=== PATIENT | female | born 1980 | race Caucasian/White ===

== ENCOUNTER → 2017-03-16 | Outpatient (CLI) | payer BC ==
[2017-03-16 15:46] LABS: CH 32.9; HCT 44.4 % (34.0-46.0); HDW 2.69; HGB 15.2 gm/dL (11.4-16.0); MCH 33.4 pg (25.0-35.0); MCHC 34.2 g/dL (31.0-37.0); MCV 97.5 fL (80.0-100.0); Mean Platelet Volume 7.2; RBC 4.55 m/uL (3.80-5.40); WBC 9.7 k/uL (3.8-10.6)
== END | disposition home or self-care (01) ==
LOC: LABPAT 14:41
PROVIDERS: ATTEND Surgery
DX: Z01.812 Encounter for preprocedural laboratory examination (principal); K43.2 Incisional hernia without obstruction or gangrene
CPT/HCPCS: 36415; 85027

== ENCOUNTER 2017-03-20 08:34 | Day surgery (SDC) | payer BC ==
[2017-03-16 09:06] VITALS: BMI 36.4
[~2017-03-20 08:34] MED LIST: DEXAMETHASONE SOD PHOSPHATE 10 MG/ML 1 ML VIAL IV ONE; HEPARIN SODIUM,PORCINE 5,000 UNIT/ML 1 ML VIAL SQ ONE; LACTATED RINGERS 1,000 ML IV SCH; MORPHINE SULFATE 4 MG/ML SYRINGE IV PRN; ONDANSETRON 4 MG/2 ML VIAL IVP ONE; ceFAZolin IN SWFI 2 GM/20 ML SYRINGE IVP ONE
[2017-03-20 09:08] LABS: Glucose,Whole Blood 164 mg/dL (75-99)
--- NOTE | 2017-03-20 09:08 | P.GSHP ---
History of Present Illness H&P Date: 03/20/17 Chief Complaint: Incarcerated incisional hernia This is a 29-year-old female for from Dr. Victor Manuel Frye. Patient resents today for incarcerated incisional hernia repair. Patient had a previous incisional hernia repaired robotically approximate 1 year ago. ago. She has developed a recurrent hernia. Today she presents for open repair. Past Medical History Past Medical History: Diabetes Mellitus, GERD/Reflux, Sleep Apnea/CPAP/BIPAP Additional Past Medical History / Comment(s): C-PAP MACHINE, DR TOLD HER SHE HAS A HERNIA. History of Any Multi-Drug Resistant Organisms: None Reported Past Surgical History: Section, Cholecystectomy, Hernia Repair Additional Past Surgical History / Comment(s): BARTHOLIN CYST X2, EGD'S, COLONOSCOPY. HEMORRHOID SURGERY Past Anesthesia/Blood Transfusion Reactions: Previous Problems w/ Anesthesia, Family History of Problems w/ Anesthesia Additional Past Anesthesia/Blood Transfusion Reaction / Comment(s): VERSED CAUSED CONFUSION AND BECAME COMBATIVE. PTS FATHER DID NOT WAKE UP FOR 3 DAYS ( CHILDHOOD SURGERY) Smoking Status: Current every day smoker - Past Family History Mother Family Medical History: Cancer, Deep Vein Thrombosis (DVT) Medications and Allergies Home Medications Medication Instructions Recorded Confirmed Type metFORMIN HCL [Glucophage] 500 mg PO BID 03/10/16 03/20/17 History Cholestyramine (with Sugar) 4 gm PO DAILY 03/16/17 03/20/17 History [Cholestyramine Packet] glyBURIDE [Diabeta] 5 mg PO AC-BID 03/16/17 03/20/17 History Allergies Allergy/AdvReac Type Severity Reaction Status Date / Time hydromorphone [From Dilaudid] Allergy Severe Anaphylaxis Verified 03/16/17 09:00 midazolam [From Versed] AdvReac Severe CONFUSED, Verified 03/16/17 09:00 COMBATIVE. Surgical - Exam Vital Signs Temp Pulse Resp BP Pulse Ox 96.8 F L 92 16 136/87 97 03/20/17 08:52 03/20/17 08:52 03/20/17 08:52 03/20/17 08:52 03/20/17 08:52 - General well developed, no distress - Eyes PERRL - ENT normal pinna - Neck no masses - Respiratory normal expansion - Cardiovascular Rhythm: regular - Abdomen Abdomen: soft, non tender Hernia: incisional (4 cm incarcerated incisional hernia located above the umbilicus) Assessment and Plan Assessment: t recurrent incarcerated incisional hernia. We'll perform open repair.
[2017-03-20] MEDS ORDERED: LIDOCAINE 1% 20 ML VIAL (10MG/ML) FOR IV START INTRADERMA ONE (09:09)
[2017-03-20] MEDS ORDERED: fentaNYL (PF) 50 MCG/ML 2 ML AMP ONE (09:38)
[2017-03-20] MEDS ORDERED: PROPOFOL 10 MG/ML 20 ML VIAL IV ONE (09:38)
[2017-03-20] MEDS ORDERED: ROCURONIUM BROMIDE 10 MG/ML 10 ML VIAL IV ONE (09:38)
[2017-03-20] MEDS ORDERED: MORPHINE SULFATE 10 MG/ML SYRINGE ONE (09:38)
[2017-03-20] MEDS ORDERED: LIDOCAINE 1% INJ 10MG/ML (20 ML MDV) ONE (09:38)
[2017-03-20] MEDS ORDERED: GLYCOPYRROLATE 0.2 MG/ML 2 ML VIAL ONE (09:38)
[2017-03-20] MEDS ORDERED: NEOSTIGMINE 1 MG/ML 10 ML VIAL ONE (09:38)
[2017-03-20] MEDS ORDERED: KETOROLAC 30 MG/ML 1 ML VIAL ONE (09:38)
[2017-03-20] MEDS ORDERED: SUCCINYLCHOLINE CHLORIDE 100 MG/5 ML SYR IV ONE (09:38)
[2017-03-20] MEDS ORDERED: KETAMINE 10 MG/ML 20 ML VIAL ONE (09:38)
[2017-03-20] MEDS ORDERED: diphenhydrAMINE 50 MG/ML 1 ML VIAL ONE (09:38)
[2017-03-20] MEDS ORDERED: BUPIVACAINE-EPI 0.5%-1:200,000 10 ML VIAL SQ ONE (10:02)
[2017-03-20] MEDS ORDERED: LACTATED RINGERS 1,000 ML IV ONE (10:46)
[2017-03-20 11:10] VITALS: TEMP 98.2
--- NOTE | 2017-03-20 11:11 | P.OP ---
Date of Procedure: 03/20/17 Preoperative Diagnosis: Recurrent incisional hernia Postoperative Diagnosis: Recurrent incisional hernia Procedure(s) Performed: Recurrent incisional hernia repair with mesh Anesthesia: DRAKE Surgeon: Mark Dominguez Estimated Blood Loss (ml): 5 Pathology: none sent Condition: stable Disposition: PACU Description of Procedure: The patient's placed on the operating table in supine position. She received general anesthesia. Her abdomen was prepped and draped usual fashion. The patient had an incisional hernia located near her umbilicus. Using a 15 blade the skin was incised and then using blunt and sharp dissection with cautery the fascia was exposed. The hernia defect measured approximately 10 cm diameter. The hernia defect was then closed using. 0 Ethibond suture. Next a Prolene mesh was placed over top apparent secured to secure strap's tacker. The mesh measured 6 x 6". A FOREIGN drains placed on top of the mesh brought through separate stab incisions.. Jose Raul's fascia was closed with 0 Vicryl. Closed with running 3-0 Monocryl suture. Dermabond was applied. Patient top she will was sent to recovery in stable condition.
[2017-03-20] MEDS ORDERED: MEPERIDINE 50 MG/ML SYRINGE IVP ONE (12:16)
[2017-03-20 12:48] LABS: Glucose,Whole Blood 261 mg/dL (75-99)
[2017-03-20] MEDS ORDERED: INSULIN ASPART 100 UNIT/ML 1 ML 10 ML VIAL SQ ONE (12:59)
[2017-03-20] MEDS ORDERED: HYDROcodone/APAP 7.5-325MG 1 EACH TAB PO ONE (13:09)
[2017-03-20 13:17] VITALS: RESP 16
[2017-03-20 13:35] VITALS: BP 122/82; PULSE 94
[2017-03-20 13:41] LABS: Glucose,Whole Blood 231 mg/dL (75-99)
== END 2017-03-20 14:17 | disposition home or self-care (01) ==
LOC: OR 08:34
PROVIDERS: ATTEND Surgery
DX: K43.2 Incisional hernia without obstruction or gangrene (principal); E11.9 Type 2 diabetes mellitus without complications; Z79.84 Long term (current) use of oral hypoglycemic drugs; K21.9 Gastro-esophageal reflux disease without esophagitis; G47.33 Obstructive sleep apnea (adult) (pediatric); Z99.89 Dependence on other enabling machines and devices; F17.200 Nicotine dependence, unspecified, uncomplicated; Z79.899 Other long term (current) drug therapy; Z88.4 Allergy status to anesthetic agent; Z88.5 Allergy status to narcotic agent
CPT/HCPCS: 81025

== ENCOUNTER → 2017-08-31 | Day surgery (SDC) | payer BC ==
[2017-08-29 10:15] VITALS: BMI 37.1
[~2017-08-31] MED LIST changes: -DEXAMETHASONE SOD PHOSPHATE 10 MG/ML 1 ML VIAL IV ONE; -HEPARIN SODIUM,PORCINE 5,000 UNIT/ML 1 ML VIAL SQ ONE; +LACTATED RINGERS 1,000 ML IV ONE; +LIDOCAINE 1% 20 ML VIAL (10MG/ML) FOR IV START INTRADERMA PRN; +LIDOCAINE 1% INJ 10MG/ML (20 ML MDV) ONE; -MORPHINE SULFATE 4 MG/ML SYRINGE IV PRN; -ONDANSETRON 4 MG/2 ML VIAL IVP ONE; +PROPOFOL 10 MG/ML 20 ML VIAL IV ONE; -ceFAZolin IN SWFI 2 GM/20 ML SYRINGE IVP ONE; +fentaNYL (PF) 50 MCG/ML 20 ML VIAL IVP PRN
[2017-08-31 07:26] VITALS: RESP 16; TEMP 98.5
[2017-08-31 07:30] LABS: Glucose,Whole Blood 199 mg/dL (75-99)
--- NOTE | 2017-08-31 07:43 | P.GSHP ---
History of Present Illness H&P Date: 08/31/17 Chief Complaint: Diarrhea 7:29-year-old female referred from Dr. Victor Manuel Frye. Patient has hiccups diarrhea. She presents today for colonoscopy. Past Medical History Past Medical History: Diabetes Mellitus, GERD/Reflux, Liver Disease, Sleep Apnea /CPAP/BIPAP Additional Past Medical History / Comment(s): CPAP MACHINE, hx fatty liver, resolved, hx acid reflux resolved, varicose veins. History of Any Multi-Drug Resistant Organisms: None Reported Past Surgical History: Section, Cholecystectomy, Hernia Repair Additional Past Surgical History / Comment(s): Ceserean Section X2, BARTHOLIN CYST X2, EGD'S, COLONOSCOPY, HEMORRHOID SURGERY, hernia repair X3. Past Anesthesia/Blood Transfusion Reactions: Previous Problems w/ Anesthesia, Family History of Problems w/ Anesthesia Additional Past Anesthesia/Blood Transfusion Reaction / Comment(s): VERSED CAUSED CONFUSION AND BECAME COMBATIVE. Woke up during colonoscopy. Uncontrollable crying after waking up. PTS FATHER DID NOT WAKE UP FOR 3 DAYS ( CHILDHOOD APPENDECTOMY SURGERY) Past Psychological History: No Psychological Hx Reported Smoking Status: Current every day smoker Past Alcohol Use History: None Reported Additional Past Alcohol Use History / Comment(s): SMOKES < 1 PPD. SMOKING OFF AND ON FOR 19 YEARS Past Drug Use History: Marijuana Additional Drug Use History / Comment(s): Uses Marijuana sporadically. - Past Family History Mother Family Medical History: Cancer, Deep Vein Thrombosis (DVT) Additional Family Medical History / Comment(s): Ovarian cancer Medications and Allergies Home Medications Medication Instructions Recorded Confirmed Type metFORMIN HCL [Glucophage] 500 mg PO BID 03/10/16 08/31/17 History Cholestyramine (with Sugar) 4 gm PO DAILY 03/16/17 08/31/17 History [Cholestyramine Packet] glyBURIDE [Diabeta] 5 mg PO AC-BID 03/16/17 08/31/17 History Allergies Allergy/AdvReac Type Severity Reaction Status Date / Time hydromorphone [From Dilaudid] Allergy Severe Anaphylaxis Verified 08/31/17 07:26 midazolam [From Versed] AdvReac Severe CONFUSED, Verified 08/31/17 07:26 COMBATIVE. Surgical - Exam Vital Signs Temp Pulse Resp BP Pulse Ox 98.5 F 92 16 132/86 98 08/31/17 07:22 08/31/17 07:22 08/31/17 07:22 08/31/17 07:22 08/31/17 07:22 - General well developed, no distress - Eyes PERRL - ENT normal pinna - Neck no masses - Respiratory normal expansion - Cardiovascular Rhythm: regular - Abdomen Abdomen: soft, non tender Results - Labs Abnormal Lab Results - Last 24 Hours (Table) 08/31/17 Range/Units 07:27 POC Glucose (mg/dL) 199 H (75-99) mg/dL Assessment and Plan Assessment: Diarrhea. We'll perform colonoscopy.
--- NOTE | 2017-08-31 07:58 | P.OP ---
Date of Procedure: 08/31/17 Preoperative Diagnosis: Diarrhea Postoperative Diagnosis: Internal and external hemorrhoids Sigmoid colon biopsy pathology pending Procedure(s) Performed: Colonoscopy Anesthesia: MAC Surgeon: Mark Dominguez Pathology: other (Sigmoid colon) Condition: stable Disposition: PACU Description of Procedure: The patient's placed on the endoscopy table in the lateral position. She received IV sedation. Digital rectal exam was performed which revealed internal and external hemorrhoids. The flexible colonoscope was then placed patient anus and passed throughout the entire colon. The ileocecal valve was visualized. The cecum, ascending and transverse colon appeared normal. The descending and sigmoid colon appeared normal. There were no polyps or diverticula seen. A random the sigmoid colon biopsies performed due to the patient's complaints of diarrhea. The scope was then brought back the rectum and this appeared normal. The scope was withdrawn for patient.
[2017-08-31 08:30] VITALS: BP 118/84; PULSE 85
[2017-08-31 09:00] LABS: Glucose,Whole Blood 184 mg/dL (75-99)
== END ==
LOC: ORWHC2ENDO 07:03
PROVIDERS: ATTEND Surgery
DX: K64.4 Residual hemorrhoidal skin tags (principal); K64.8 Other hemorrhoids; R19.7 Diarrhea, unspecified; E11.9 Type 2 diabetes mellitus without complications; Z79.84 Long term (current) use of oral hypoglycemic drugs; K21.9 Gastro-esophageal reflux disease without esophagitis; G47.33 Obstructive sleep apnea (adult) (pediatric); Z99.89 Dependence on other enabling machines and devices; F17.210 Nicotine dependence, cigarettes, uncomplicated; I83.90 Asymptomatic varicose veins of unspecified lower extremity; Z79.899 Other long term (current) drug therapy; Z88.4 Allergy status to anesthetic agent; Z88.5 Allergy status to narcotic agent
CPT/HCPCS: 81025; 88305; 45380; J2001; J2704

== ENCOUNTER → 2019-05-13 | Outpatient (CLI) | payer BC ==
--- NOTE | 2019-05-13 11:46 | US ---
EXAMINATION TYPE: US pelvis complete transvag DATE OF EXAM: 05/13/2019 COMPARISON: NONE CLINICAL HISTORY: N92.0 Menorrhagia with reg cycle. clots during cycle have increased over the past 6 years, A1, twin gestation TECHNIQUE: OBTA/OBTV. Transabdominal sonographic and Transvaginal sonographic images of the pelvis were acquired. Date of LMP: 05/02/2019 EXAM MEASUREMENTS: Uterus: 9.5 x 6.0 x 5.7 cm Endometrial Stripe: 1.3 cm Right Ovary: 2.6 x 2.2 x 1.9 cm Left Ovary: 2.8 x 1.8 x 1.9 cm 1. Uterus: Anteverted wnl 2. Endometrium: slightly thickened for stage of cycle although overall within normal limits. 3. Right Ovary: 1.8cm follicle versus small cyst seen 4. Left Ovary: wnl 5. Bilateral Adnexa: wnl 6. Posterior cul-de-sac: wnl IMPRESSION: Right ovarian dominant follicle versus small cyst. Endometrial thickness is slightly thic kened for the stage of the patient's stated cycle but is overall within normal limits.
== END | disposition home or self-care (01) ==
LOC: RADUSWWP 10:14
PROVIDERS: ATTEND Obstetrics & Gynecology
DX: N92.0 Excessive and frequent menstruation with regular cycle (principal)
CPT/HCPCS: 76830; 76856

== ENCOUNTER → 2019-06-09 | Outpatient (CLI) | payer BC ==
--- NOTE | 2019-06-10 09:24 | MM ---
Reason for exam: screening (asymptomatic). Baseline mammogram. History: Patient had first child at age 30. Family history of breast cancer in grandmother. Took hormonal contraceptives for 3 years. Physical Findings: Nurse did not find any significant physical abnormalities on exam. MG 3D Screening Mammo W/Cad Bilateral CC and MLO view(s) were taken. The breast tissue is heterogeneously dense. This may lower the sensitivity of mammography. There is a 1.0 x 0.5cm right upper outer quadrant mass 4cm from nipple. There are scattered bilateral round calcifications. These results were verbally communicated with the patient and result sheet given to the patient on 06/09/19. ASSESSMENT: Incomplete: need additional imaging evaluation, BI-RAD 0 RECOMMENDATION: Ultrasound of the right breast.
--- NOTE | 2019-06-10 09:27 | USB ---
Reason for exam: additional evaluation requested from abnormal screening. History: Patient had first child at age 30. Family history of breast cancer in grandmother. Took hormonal contraceptives for 3 years. Physical Findings: Breast exam preformed at baseline screening. US Breast Workup Limited RT Right limited breast ultrasound including focal area of concern, retroareolar and axilla demonstrates a 1.0 x 1.7 x 0.6cm irregular, vascular lesion at 10 o'clock, questionable ductal ectasia, angular margins, possible intraductal mass with interval vascularity, duct ectasia at the posterior nipple and a 1.3 x 1.0 x 1.1cm lymph node at the axilla. These results were verbally communicated with the patient and result sheet given to the patient on 06/09/19. ASSESSMENT: Suspicious, BI-RAD 4 RECOMMENDATION: Ultrasound core biopsy of the right breast. (recommendation for right calcifications will be made on rad/path correlation) Called Dr. Castellanos's with mammographic findings and has scheduled an appointment for the patient for 06/17/19 at 1:[address] Dominguez. PRELIMINARY REPORT CALLED AND FAXED TO DR. DOMINGUEZ ON 06/10/19.
== END | disposition home or self-care (01) ==
LOC: RADMAMWWP 10:42
PROVIDERS: ATTEND Obstetrics & Gynecology
DX: Z12.31 Encounter for screening mammogram for malignant neoplasm of breast (principal); R92.8 Other abnormal and inconclusive findings on diagnostic imaging of breast; Z80.3 Family history of malignant neoplasm of breast
CPT/HCPCS: 77063; 77067

== ENCOUNTER → 2019-07-11 | Day surgery (SDC) | payer BC ==
--- NOTE | 2019-07-11 13:56 | USB ---
EXAMINATION TYPE: US biopsy breast add'l VAD RT, US biopsy breast VAD RT, MG diagnostic mammo RT wo CAD DATE OF EXAM: 07/11/2019 CLINICAL HISTORY: R92.8 abn mamm. TECHNIQUE: 2 site ultrasound guided core biopsy of right breast. COMPARISON: Right breast ultrasound dated 06/09/2019 FINDINGS: The procedure of ultrasound guided core biopsy was explained to the patient. Benefits, alternatives, and risks were discussed. An informed consent was then obtained. Preprocedural imaging was performed demonstrating a second suspicious mass at the 10:00 position adjacent to the initial visualized mass on the ultrasound of 06/09/2019. The second mass was marked at 10:00 in zone BC measuring approximately 0.6 x 0.6 x 0.6 cm. Discussion for recommendation of a 2 site biopsy was had with the patient and the patient agreed. Preprocedural timeout was performed. SITE A (0.6 cm mass at the 10:00 position in zone BC of the right breast): The patient was placed in supine positioning for imaging and for the procedure. The overlying skin was prepped and draped in usual sterile fashion. 10 cc of 1% lidocaine was used as anesthetic into the skin and subcutaneous tissue up to area of concern in the right breast. Under ultrasound guidance, a 12-gauge vacuum assisted biopsy gun device was used to obtain 6 core samples. Following this, a coil-shaped biopsy marker was left in the mass. SITE B(0 1.7 cm mass at the 10:00 position in zone A of the right breast): The patient was placed in supine positioning for imaging and for the procedure. The overlying skin was prepped and draped in usual sterile fashion. 10 cc of 1% lidocaine was used as anesthetic into the skin and subcutaneous tissue up to area of concern in the right breast. Under ultrasound guidance, a 12-gauge vacuum assisted biopsy gun device was used to obtain 4 core samples. Following this, a ribbon-shaped biopsy marker was left in the mass. Postprocedure mammogram demonstrates both biopsy marker to overlie the region of the previously seen mammographic mass. The nipple is not in profile in the MLO view and the mammographic mass is not readily visualized. The patient tolerated the procedure well without any immediate complication. The patient was kept in the radiology department for short stay after the procedure and then discharged home in stable condition. IMPRESSION: Successful, uncomplicated 2 site ultrasound guided core biopsy of 2 masses at the 10:00 position in the right breast, full pathology results to follow. Pathology Results: Benign A. RIGHT BREAST, SITE A, 10:00, ULTRASOUND GUIDED CORE BIOPSY: Fibrocystic changes including fibrosis, cysts, sclerosing adenosis, apocrine metaplasia and rare microcalcifications. B. RIGHT BREAST, SITE B, 10:00, ZONE A, ULTRASOUND GUIDED CORE BIOPSY: Fibrocystic changes including fibrosis, cysts, and sclerosing adenosis. Recommendation Follow up ultrasound of the right breast in 6 months. RED
[2019-07-11 14:14] VITALS: BP 139/85; PULSE 73; RESP 20; TEMP 98
== END ==
LOC: RADUSWWP 10:28
PROVIDERS: ATTEND Surgery
DX: N60.11 Diffuse cystic mastopathy of right breast (principal); N60.21 Fibroadenosis of right breast; N60.81 Other benign mammary dysplasias of right breast
CPT/HCPCS: 88305; 77065; 19083; 19084; A4648; J2001

== ENCOUNTER → 2020-03-01 | Outpatient (CLI) | payer BC ==
--- NOTE | 2020-03-01 10:24 | USB ---
Reason for exam: follow-up at short interval from prior study. History: Patient had first child at age 30. Family history of breast cancer in grandmother. Benign US biopsy breast VAD RT of the right breast, July 11, 2019. Benign US biopsy breast add'l VAD RT of the right breast, July 11, 2019. Took hormonal contraceptives for 3 years. Physical Findings: Nurse did not find any significant physical abnormalities on exam. US Breast Limited RT Right limited breast ultrasound including focal area of concern, retroareolar and axilla demonstrates a 1.0 x 0.4 x 0.4cm microlobulated, hypoechoic, vascular lesion at 10 o'clock. No change from 06/09/19. These results were verbally communicated with the patient and result sheet given to the patient on 03/01/20. ASSESSMENT: Benign, BI-RAD 2 RECOMMENDATION: Return to routine screening mammogram schedule for both breasts. Back on schedule for May 2019.
== END | disposition home or self-care (01) ==
LOC: RADUSWWP 09:00
PROVIDERS: ATTEND Family Medicine
DX: N63.10 Unspecified lump in the right breast, unspecified quadrant (principal)

== ENCOUNTER → 2020-05-14 | Outpatient (CLI) | payer BC ==
--- NOTE | 2020-05-14 13:20 | XR ---
Right shoulder HISTORY: Right hand numbness and pain, shoulder pain 2 views of the right shoulder Hypertrophic changes present at the acromioclavicular joint. Right lung apex as visualized is normal. No fracture or dislocation. Distal acromion is slightly downturned. IMPRESSION: Mild AC joint arthropathy.
--- NOTE | 2020-05-14 13:21 | XR ---
Cervical spine HISTORY: Right hand numbness and pain, headache and shoulder pain 3 views of the cervical spine There is spondylosis greatest at C5-6, is loss of disc height C4-5, C5-6 and C6-7. Reversal the oscar l lordosis of the cervical spine may be due to muscle spasm. Prevertebral soft tissues are normal. Th ere is multilevel facet arthropathy change. IMPRESSION: Degenerative disc disease and facet arthropathy.
== END | disposition home or self-care (01) ==
LOC: RADXRMAIN 10:38
PROVIDERS: ATTEND Nurse Practitioner Family
DX: M12.811 Other specific arthropathies, not elsewhere classified, right shoulder (principal); M50.30 Other cervical disc degeneration, unspecified cervical region; M47.812 Spondylosis without myelopathy or radiculopathy, cervical region
CPT/HCPCS: 72040

== ENCOUNTER → 2020-06-04 | Outpatient (CLI) | payer BC ==
--- NOTE | 2020-06-08 10:21 | MM ---
Reason for exam: screening (asymptomatic). Last mammogram was performed 11 months ago. History: Patient had first child at age 30. Family history of breast cancer in grandmother. Benign US biopsy breast VAD RT of the right breast, July 11, 2019. Benign US biopsy breast add'l VAD RT of the right breast, July 11, 2019. Took hormonal contraceptives for 3 years. Physical Findings: A clinical breast exam by your physician is recommended on an annual basis and results should be correlated with mammographic findings. MG 3D Screening Mammo W/Cad Bilateral CC and MLO view(s) were taken. Prior study comparison: July 11, 2019, right breast MG diagnostic mammo RT wo CAD. June 09, 2019, bilateral MG 3d screening mammo w/cad. The breast tissue is heterogeneously dense. This may lower the sensitivity of mammography. Previous mammotome biopsy in the right breast x 2. Scattered punctate calcifications are unchanged. No significant changes when compared with prior studies. ASSESSMENT: Benign, BI-RAD 2 RECOMMENDATION: Routine screening mammogram of both breasts in 1 year.
== END | disposition home or self-care (01) ==
LOC: RADMAMWWP 14:56
PROVIDERS: ATTEND Surgery
DX: Z12.31 Encounter for screening mammogram for malignant neoplasm of breast (principal)
CPT/HCPCS: 77063; 77067

== ENCOUNTER → 2021-03-09 | Outpatient (CLI) | payer BC ==
--- NOTE | 2021-03-09 18:25 | CONS ---
CONSULTATION DATE OF SERVICE: 03/09/2021 41-year-old study had [facility] for obstructive sleep apnea- hypopnea syndrome. HISTORY OF PRESENT ILLNESS/SLEEP-WAKE EVALUATION: The patient has history of obstructive sleep apnea for 8 years. Since that time, she continued to use her CPAP equipment every night for the whole night. Six months ago, she received a new CPAP unit. She sleeps quite well with the machine, does not snore. Occasionally though grinding teeth. SLEEP SCHEDULE: Her sleep schedule on weekdays from midnight until 7 a.m. and on weekends from 1 or 2:00 a.m. until 9 or 10 am. FALLING ASLEEP: She may have problems with falling asleep, has TV set in bedroom. DURING SLEEP: Usually sleeps on the back position. DURING THE DAY/SLEEP WAKE EVALUATION: During the day, patient does not feel any sleepiness. Does not take naps. [place] Sleepiness Scale is 1. I checked her CPAP unit. Pressure is 15 cm of water. Usage is 30/30 nights for more than 4 hours, average usage 7.4 hours per night. Leak is 14 L/minute, which is acceptable. Apnea-hypopnea index is only 0.2 which is absolutely perfect. EPR at 3. The patient is using AirFit N20 small nasal mask. PAST MEDICAL HISTORY: Positive for diabetes mellitus. PAST SURGICAL HISTORY: Abdominal hernia repair, x2. repair, ganglion cyst 1 month ago. MEDICATIONS: Ozempic 0.25 mg once a week, twice a day. Prevalite 4 mg once a day. SOCIAL HISTORY: Positive for smoking in the past for about 3 years. Alcohol consumption none. FAMILY HISTORY: Heart problems, diabetes. REVIEW OF SYSTEMS: Episodes of memory problems. PHYSICAL EXAMINATION: GENERAL: lady without distress. BP 132/85, HR 87, RR 15, height 5 feet 5-3/4 inches, weight 227.8 pounds, body mass index 36.9, temperature 97.7, oxygen saturation at room air 97%. Oropharynx: Low position of soft palate, Mallampati 4. NECK is wide 17.5 inches in circumference. Neck: Supple, no JVD. Thyroid is not palpable. LUNGS: Clear to percussion and to auscultation. Good air exchange. No wheezing or rhonchi. HEART: S1, S2 regular. No murmurs, gallops, or rubs. ABDOMEN: Obese. Soft and nontender. Bowel sounds are present. No organomegaly appreciated. EXTREMITIES: No clubbing or cyanosis. DIET ATTENDANT: Awake, alert, and oriented X3. Cranial nerves 2 to 7 intact. There is no fasciculation or atrophy. noted. No focal deficits observed. IMPRESSION: 1. Obstructive sleep apnea-hypopnea syndrome for 8 years. The patient continued to use CPAP equipment 100% of nights. No snoring with the machine. Normal apnea-hypopnea index. Extremely low position of soft palate, Mallampati 4, wide neck. Obstructive sleep apnea-hypopnea syndrome on control with CPAP. Patient demonstrated great compliance with treatment, benefitting from treatment. 2. Obesity; body mass index 36.9. 3. Diabetes mellitus. 4. Status post hernia repair. 5. Status post . 6. Recently some memory problems. 7. Status post hemorrhoid surgical treatment. 8. Status post ganglion cyst removed. PLAN: 1. I changed regimen of the machine to automatic with range of the pressure 6-15. The patient should continue to use her CPAP equipment every night for the whole night. 2. Losing weight. 3. Sleep hygiene with time in bed for 8 hours. 4. No driving if feeling sleepiness. 5. Prescription for all necessary CPAP supplies including AirFit N20 small nasal mask, tube filters. Thank you very much for allowing me to participate in the management of your patient. Sincerely, Enrico Abdul MD, PhD, FAASM Diplomat of [employer] Sleep Medicine [employer] [place] [employer] [facility] [place] MMODL / SADNEE: [id number] /
== END ==
LOC: SLEEP 11:30
PROVIDERS: ATTEND Internal Medicine
DX: G47.33 Obstructive sleep apnea (adult) (pediatric) (principal); E66.9 Obesity, unspecified; E11.9 Type 2 diabetes mellitus without complications; R41.3 Other amnesia; F17.200 Nicotine dependence, unspecified, uncomplicated; Z87.59 Personal history of other complications of pregnancy, childbirth and the puerperium; Z99.89 Dependence on other enabling machines and devices; Z68.36 Body mass index [BMI] 36.0-36.9, adult; Z98.890 Other specified postprocedural states; Z87.891 Personal history of nicotine dependence; Z88.5 Allergy status to narcotic agent
CPT/HCPCS: 99211

== ENCOUNTER 2021-06-23 15:22 | Emergency (ER) | payer OTHER ==
[2021-06-23 15:43] VITALS: RESP 18; TEMP 98.1
[2021-06-23] MEDS ORDERED: SODIUM CHLORIDE 0.9% 1,000 ML IV STA (16:13)
--- NOTE | 2021-06-23 16:13 | ED ---
General Adult HPI - General Chief complaint: Headache Stated complaint: Poss carbon monoxide poisoning Time Seen by Provider: 06/23/21 15:59 Source: patient, RN notes reviewed Mode of arrival: ambulatory Limitations: no limitations - History of Present Illness Initial comments: 41-year-old female presents to the emergency department for evaluation of po ssible carbon monoxide poisoning. Patient states she woke up this morning with a mild headache and felt fatigued throughout the day. States she had an episode of nausea and his slightly dizzy as well. Patient states around noontime today she realized that her gas stove had been left on since dinner last night around 6 PM. 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 She does complain of fuzzy vision and does not wear corrective lenses. Able to drive herself to the emergency department without difficulty. Patient denies fever, chills, chest pain, shortness of breath, abdominal pain, vomiting, diarrhea, dysuria, or hematuria - Related Data Home Medications Medication Instructions Recorded Confirmed Cholestyramine (with Sugar) 4 gm PO DAILY 03/16/17 07/11/19 [Cholestyramine Packet] glyBURIDE [Diabeta] 5 mg PO AC-BID 03/16/17 07/11/19 Dapagliflozin Propanediol [Farxiga] 10 mg PO DAILY 06/19/19 07/11/19 Loratadine-Pseudoeph 10-240 mg 1 tab PO DAILY 07/11/19 07/11/19 [Claritin-D 24 Hour] Allergies Allergy/AdvReac Type Severity Reaction Status Date / Time hydromorphone [From Dilaudid] Allergy Severe Anaphylaxis Verified 07/11/19 10:38 midazolam [From Versed] AdvReac Severe CONFUSED, Verified 07/11/19 10:38 COMBATIVE. Review of Systems ROS Statement: Those systems with pertinent positive or pertinent negative responses have been documented in the HPI. ROS Other: All systems not noted in ROS Statement are negative. Past Medical History Past Medical History: Diabetes Mellitus, GERD/Reflux, Liver Disease, Sleep Apnea/CPAP/BIPAP Additional Past Medical History / Comment(s): CPAP MACHINE, hx fatty liver, resolved, hx acid reflux resolved, varicose veins. History of Any Multi-Drug Resistant Organisms: None Reported Past Surgical History: Section, Cholecystectomy, Hernia Repair Additional Past Surgical History / Comment(s): Ceserean Section X2, BARTHOLIN CYST X2, EGD'S, COLONOSCOPY, HEMORRHOID SURGERY, hernia repair X3. Past Anesthesia/Blood Transfusion Reactions: Previous Problems w/ Anesthesia, Family History of Problems w/ Anesthesia Additional Past Anesthesia/Blood Transfusion Reaction / Comment(s): VERSED CAUSED CONFUSION AND BECAME COMBATIVE. Woke up during colonoscopy. Uncontrollable crying after waking up. PTS FATHER DID NOT WAKE UP FOR 3 DAYS (CHILDHOOD APPENDECTOMY SURGERY) Past Psychological History: No Psychological Hx Reported Smoking Status: Never smoker Past Alcohol Use History: None Reported Past Drug Use History: Marijuana - Past Family History Mother Family Medical History: Cancer, Deep Vein Thrombosis (DVT) Additional Family Medical History / Comment(s): Ovarian cancer General Exam Limitations: no limitations (Well-developed, well-nourished female in no acute distress. Initial temperature 98.1, pulse 79, respirations 18, blood pressure 166/93, pulse ox 99% on room air.) General appearance: alert, in no apparent distress Eye exam: Present: normal appearance, PERRL, EOMI. Absent: scleral icterus, conjunctival injection, periorbital swelling ENT exam: Present: normal exam, mucous membranes moist Respiratory exam: Present: normal lung sounds bilaterally. Absent: respiratory distress, wheezes, rales, rhonchi, stridor Cardiovascular Exam: Present: regular rate, normal rhythm, normal heart sounds. Absent: systolic murmur, diastolic murmur, rubs, gallop, clicks GI/Abdominal exam: Present: soft, normal bowel sounds. Absent: distended, tenderness, guarding, rebound, rigid Neurological exam: Present: alert, oriented X3, CN II-XII intact Psychiatric exam: Present: normal affect, normal mood Skin exam: Present: warm, dry, intact. Absent: normal color (slightly flushed chest, neck, and face), rash Course Vital Signs 06/23/21 06/23/21 15:37 18:14 Temperature 98.1 F Pulse Rate 79 80 Respiratory 18 18 Rate Blood Pressure 166/93 132/78 O2 Sat by Pulse 99 100 Oximetry - Reevaluation(s) Reevaluation #1: 06/23/21 16:12 Patient placed on oxygen via nasal cannula preemptively. Laboratory studies w ill be ordered and patient will be administered IV fluids. She is awake, alert, oriented, and following commands appropriately. 06/23/21 17:00 Patient is feeling significantly improved after treatment. Laboratory studies were reviewed with patient including monoxide level of 1.5%. Discussed safety plan for return home. Medical Decision Making - Medical Decision Making 41-year-old female with past medical history of diabetes, GERD, and sleep apnea presents to the emergency department for evaluation after possible carbon monoxi de exposure. Upon exam, patient is well-appearing and in no acute distress. She was placed on oxygen via nasal cannula due to chief complaint. Patient is alert and oriented 4, though does endorse fatigue. Answers questions appropriately. She is slightly flushed and complaining of mild headache and blurred vision. Vision is 20/40 bilaterally without corrective lenses. She is unsure what her baseline vision is. Laboratory studies were reviewed showing a carbon monoxide level of 1.5%. Her lactic acid is elevated at 2.1. Patient was given 1 L of IV fluids and reports significant improvement. She will be discharged home to follow up with her PCP tomorrow. Did discuss home safety concerns. Patient's spouse will obtain carbon monoxide monitor and they will seek alternative fdc this evening. Strict return return parameters were discussed. Patient verbalizes understanding and agrees with this plan. This patient's care was discussed with my attending Dr. Dial. - Lab Data Result diagrams: 06/23/21 16:32 06/23/21 16:32 Lab Results 06/23/21 06/23/21 06/23/21 Range/Units 16:32 16:32 16:32 WBC 7.2 (3.8-10.6) k/uL RBC 4.74 (3.80-5.40) m/uL Hgb 15.8 (11.4-16.0) gm/dL Hct 44.6 (34.0-46.0) % MCV 94.1 (80.0-100.0) fL MCH 33.4 (25.0-35.0) pg MCHC 35.5 (31.0-37.0) g/dL RDW 12.4 (11.5-15.5) % Plt Count 220 (150-450) k/uL MPV 7.0 Neutrophils % 59 % Lymphocytes % 33 % Monocytes % 3 % Eosinophils % 2 % Basophils % 1 % Neutrophils # 4.3 (1.3-7.7) k/uL Lymphocytes # 2.4 (1.0-4.8) k/uL Monocytes # 0.2 (0-1.0) k/uL Eosinophils # 0.2 (0-0.7) k/uL Basophils # 0.1 (0-0.2) k/uL Carbon Monoxide, Quant (<10.0) % Sodium 138 (137-145) mmol/L Potassium 4.3 (3.5-5.1) mmol/L Chloride 103 (98-107) mmol/L Carbon Dioxide 26 (22-30) mmol/L Anion Gap 9 mmol/L BUN 9 (7-17) mg/dL Creatinine 0.46 L (0.52-1.04) mg/dL Est GFR (CKD-EPI)AfAm >90 (>60 ml/min/1.73 sqM) Est GFR (CKD-EPI)NonAf >90 (>60 ml/min/1.73 sqM) Glucose 134 H (74-99) mg/dL Lactic Ac Sepsis Rflx Plasma Lactic Acid Vito 2.1 H* (0.7-2.0) mmol/L Calcium 9.8 (8.4-10.2) mg/dL Total Bilirubin 1.2 (0.2-1.3) mg/dL AST 33 (14-36) U/L ALT 34 (4-34) U/L Alkaline Phosphatase 49 (38-126) U/L Troponin I (0.000-0.034) ng/mL Total Protein 7.5 (6.3-8.2) g/dL Albumin 4.5 (3.5-5.0) g/dL 06/23/21 06/23/21 06/23/21 Range/Units 16:32 16:32 17:11 WBC (3.8-10.6) k/uL RBC (3.80-5.40) m/uL Hgb (11.4-16.0) gm/dL Hct (34.0-46.0) % MCV (80.0-100.0) fL MCH (25.0-35.0) pg MCHC (31.0-37.0) g/dL RDW (11.5-15.5) % Plt Count (150-450) k/uL MPV Neutrophils % % Lymphocytes % % Monocytes % % Eosinophils % % Basophils % % Neutrophils # (1.3-7.7) k/uL Lymphocytes # (1.0-4.8) k/uL Monocytes # (0-1.0) k/uL Eosinophils # (0-0.7) k/uL Basophils # (0-0.2) k/uL Carbon Monoxide, Quant 1.5 (<10.0) % Sodium (137-145) mmol/L Potassium (3.5-5.1) mmol/L Chloride (98-107) mmol/L Carbon Dioxide (22-30) mmol/L Anion Gap mmol/L BUN (7-17) mg/dL Creatinine (0.52-1.04) mg/dL Est GFR (CKD-EPI)AfAm (>60 ml/min/1.73 sqM) Est GFR (CKD-EPI)NonAf (>60 ml/min/1.73 sqM) Glucose (74-99) mg/dL Lactic Ac Sepsis Rflx Y Plasma Lactic Acid Vito (0.7-2.0) mmol/L Calcium (8.4-10.2) mg/dL Total Bilirubin (0.2-1.3) mg/dL AST (14-36) U/L ALT (4-34) U/L Alkaline Phosphatase (38-126) U/L Troponin I 0.012 (0.000-0.034) ng/mL Total Protein (6.3-8.2) g/dL Albumin (3.5-5.0) g/dL - EKG Data EKG shows normal: sinus rhythm Rate: normal EKG Comments: EKG was obtained at 1702 showing sinus rhythm with ventricular rate 66, VT inte rval 175, QRS duration 102, QT/QTC 414/428. Interpretation normal ECG. Disposition Clinical Impression: Carbon monoxide exposure Disposition: HOME SELF-CARE Condition: Stable Instructions (If sedation given, give patient instructions): Carbon Monoxide Poisoning (ED) Additional Instructions: Please obtain a carbon monoxide detector for the home. Plan to open the windows and allowed home to air out this evening. Consider staying elsewhere this evening. Follow-up with your PCP for a recheck tomorrow or Sunday. Return to the emergency department with any new, worsening, or concerning symptoms. Is patient prescribed a controlled substance at d/c from ED?: No Referrals: Victor Manuel Rasheed DO [Primary Care Provider] - 1-2 days Time of Disposition: 17:54
[2021-06-23 16:46] LABS: Basophils # (A) 0.1 k/uL (0-0.2); Basophils % (A) 1 %; Eosinophils # (A) 0.2 k/uL (0-0.7); Eosinophils % (A) 2 %; HCT 44.6 % (34.0-46.0); HGB 15.8 gm/dL (11.4-16.0); Lymphocytes # (A) 2.4 k/uL (1.0-4.8); Lymphocytes % (A) 33 %; MCH 33.4 pg (25.0-35.0); MCHC 35.5 g/dL (31.0-37.0); MCV 94.1 fL (80.0-100.0); Monocytes # (A) 0.2 k/uL (0-1.0); Monocytes % (A) 3 %; Neutrophils # (A) 4.3 k/uL (1.3-7.7); Neutrophils % (A) 59 %; Platelet Count 220 k/uL (150-450); RBC 4.74 m/uL (3.80-5.40); RDW 12.4 % (11.5-15.5); WBC 7.2 k/uL (3.8-10.6)
[2021-06-23 16:55] LABS: ALT 34 U/L (4-34); AST 33 U/L (14-36); African American GFR (CKD) >90 (>60 ml/min/1.73 sqM); Albumin 4.5 g/dL (3.5-5.0); Alkaline Phosphatase 49 U/L (38-126); Anion Gap 9 mmol/L; Blood Urea Nitrogen 9 mg/dL (7-17); Calcium 9.8 mg/dL (8.4-10.2); Carbon Dioxide 26 mmol/L (22-30); Chloride 103 mmol/L (98-107); Glucose 134 mg/dL (74-99); Non-African American GFR(CKD) >90 (>60 ml/min/1.73 sqM); Potassium 4.3 mmol/L (3.5-5.1); Sodium 138 mmol/L (137-145); Total Bilirubin 1.2 mg/dL (0.2-1.3); Total Protein 7.5 g/dL (6.3-8.2)
[2021-06-23 18:15] VITALS: BP 132/78; PULSE 80
== END 2021-06-23 18:15 | disposition home or self-care (01) ==
LOC: EC 15:22
DX: R51.9 Headache, unspecified (principal); R53.83 Other fatigue; R42 Dizziness and giddiness; Z77.098 Contact with and (suspected) exposure to other hazardous, chiefly nonmedicinal, chemicals; E11.9 Type 2 diabetes mellitus without complications; Z88.5 Allergy status to narcotic agent; Z88.8 Allergy status to other drugs, medicaments and biological substances
CPT/HCPCS: 36415; 80053; 82375; 83605; 84484; 85025; 93005; 96360; 99283

== ENCOUNTER → 2021-07-18 | Outpatient (CLI) | payer OTHER ==
--- NOTE | 2021-07-20 09:24 | MM ---
Reason for exam: screening (asymptomatic). Last mammogram was performed 1 year and 2 months ago. History: Patient had first child at age 30. Family history of breast cancer in maternal grandmother. Benign US biopsy breast VAD RT of the right breast, July 11, 2019. Benign US biopsy breast add'l VAD RT of the right breast, July 11, 2019. Took hormonal contraceptives for 3 years. Physical Findings: A clinical breast exam by your physician is recommended on an annual basis and results should be correlated with mammographic findings. MG 3D Screening Mammo W/Cad Bilateral CC and MLO view(s) were taken. Prior study comparison: June 04, 2020, bilateral MG 3d screening mammo w/cad. July 11, 2019, right breast MG diagnostic mammo RT wo CAD. The breast tissue is heterogeneously dense. This may lower the sensitivity of mammography. Previous mammotome biopsy in the right breast. No significant changes when compared with prior studies. ASSESSMENT: Benign, BI-RAD 2 RECOMMENDATION: Routine screening mammogram of both breasts in 1 year.
== END | disposition home or self-care (01) ==
LOC: RADMAMWWP 14:54
PROVIDERS: ATTEND Obstetrics & Gynecology
DX: Z12.31 Encounter for screening mammogram for malignant neoplasm of breast (principal); Z80.3 Family history of malignant neoplasm of breast
CPT/HCPCS: 77063; 77067

== ENCOUNTER → 2022-07-19 | Outpatient (CLI) | payer OTHER ==
--- NOTE | 2022-07-19 12:36 | XR ---
EXAMINATION TYPE: XR Hip Bilateral Complete DATE OF EXAM: 07/19/2022 COMPARISON: NONE HISTORY: Pain TECHNIQUE: 2 views submitted FINDINGS: There is no evidence of erosive change or acute fracture. There is hypertrophic change of the acetabulum bilaterally IMPRESSION: 1. Correlate for femoral acetabular impingement.
--- NOTE | 2022-07-19 12:38 | XR ---
EXAMINATION TYPE: XR knee complete bilateral DATE OF EXAM: 07/19/2022 COMPARISON: NONE HISTORY: Pain TECHNIQUE: 4 views are submitted of each knee. FINDINGS: Mild hypertrophic arthropathy of the patellofemoral joint and mild narrowing of the medial compartmen t of the knee joint.. Osseous structures are intact. No acute fracture seen. IMPRESSION: 1. Very mild arthritic change bilaterally. If concern for internal derangement of the knee correlate with MRI..
== END | disposition home or self-care (01) ==
LOC: RADXRMAIN 11:41
PROVIDERS: ATTEND Surgery
DX: M17.0 Bilateral primary osteoarthritis of knee (principal); M16.0 Bilateral primary osteoarthritis of hip
CPT/HCPCS: 73521

== ENCOUNTER → 2022-07-19 | Outpatient (CLI) | payer OTHER ==
--- NOTE | 2022-07-20 18:55 | MM ---
Reason for Exam: Screening (asymptomatic). Last screening mammogram was performed 12 month(s) ago. Patient History: Menarche at age 13. First Full-Term at age 30. Late child-bearing (after 30). Patient has history of breast feeding. Patient used Hormonal Contraceptives for 3 years. 07/11/2019, Benign Core Biopsy on the right side. 07/11/2019, Benign Core Biopsy on the right side. Maternal grandmother had breast cancer. Last menstrual period: 07/17/2022 Risk Values: Yaritza 5 year model risk: 2.4%. NCI Lifetime model risk: 18.9%. Prior Study Comparison: 07/11/2019 Right Diagnostic Mammogram, [facility]. 06/04/2020 Bilateral Screening Mammogram, [facility]. 07/18/2021 Bilateral Screening Mammogram, [facility]. Tissue Density: The breast tissue is heterogeneously dense. This may lower the sensitivity of mammography. Findings: Analyzed By CAD. 2 microclips associated with nodularity anterior upper quadrant right breast redemonstrated. Regional punctate microcalcifications on both sides. Asymmetric density subareolar right cc view just lateral to the retroareolar plane is unchanged. There is no suspicious group of microcalcifications or new suspicious mass in either breast. Overall Assessment: Benign, BI-RAD 2 Management: Screening Mammogram of both breasts in 1 year. 1. Patient should continue monthly self breast exams. 2. A clinical breast exam by your physician is recommended on an annual basis. 3. This exam should not preclude additional follow-up of suspicious palpable abnormalities. Electronically signed and approved by: Sudha Huynh M.D. Radiologist
== END | disposition home or self-care (01) ==
LOC: RADMAMWWP 11:15
PROVIDERS: ATTEND Family Medicine
DX: Z12.31 Encounter for screening mammogram for malignant neoplasm of breast (principal); Z80.3 Family history of malignant neoplasm of breast; Z98.890 Other specified postprocedural states
CPT/HCPCS: 77063; 77067

== ENCOUNTER → 2023-07-23 | Outpatient (CLI) | payer OTHER ==
--- NOTE | 2023-07-25 06:59 | MM ---
Reason for Exam: Screening (asymptomatic). Last screening mammogram was performed 12 month(s) ago. Patient History: Menarche at age 13. First Full-Term at age 30. Late child-bearing (after 30). Patient has history of breast feeding. Patient used Hormonal Contraceptives for 3 years. 07/11/2019, Benign Core Biopsy on the right side. 07/11/2019, Benign Core Biopsy on the right side. Maternal grandmother (great) had breast cancer under age 50. Maternal grandmother (great) had breast cancer at or over age 50. Risk Values: Yaritza 5 year model risk: 2.6%. NCI Lifetime model risk: 18.6%. Prior Study Comparison: 06/09/2019 Bilateral Screening Mammogram, [facility]. 07/11/2019 Right Diagnostic Mammogram, [facility]. 06/04/2020 Bilateral Screening Mammogram, [facility]. 07/18/2021 Bilateral Screening Mammogram, [facility]. 07/19/2022 Bilateral MG 3D screening mammo w/cad, [facility]. Tissue Density: There are scattered areas of fibroglandular density. Findings: Analyzed By CAD. The pattern is symmetrical. No significant interval change is evident. Coronary markers are within the right anterior breast. Scattered benign punctate calcifications are present bilaterally. No suspicious groups of microcalcifications, spiculated or lobular masses, architectural distortion or other secondary signs of malignancy are mammographically apparent. Overall Assessment: Benign, BI-RAD 2 Management: Screening Mammogram of both breasts in 1 year. A negative mammogram report should not preclude additional follow up of suspicious palpable abnormalities. Patient should continue monthly self breast exam. A clinical breast exam by your physician is recommended on an annual basis and results should be correlated with mammographic findings. Electronically signed and approved by: Chandana Dominguez D.O. Radiologis
== END | disposition home or self-care (01) ==
LOC: RADMAMWWP 09:36
PROVIDERS: ATTEND Family Medicine
DX: Z12.31 Encounter for screening mammogram for malignant neoplasm of breast (principal); Z80.3 Family history of malignant neoplasm of breast
CPT/HCPCS: 77063; 77067

== ENCOUNTER → 2023-09-14 | Outpatient (CLI) | payer OTHER ==
--- NOTE | 2023-09-14 12:05 | XR ---
EXAMINATION TYPE: XR knee limited LT DATE OF EXAM: 09/14/2023 11:40 AM CLINICAL INDICATION:Female, 43 years old with history of M25.562 Left knee pain; [facility] COMPARISON: None. TECHNIQUE: XR knee limited LT; examined in Frontal, lateral and oblique projections. FINDINGS: No evidence of any acute osseous pathology, soft tissue swelling, or joint effusion is no alexa. Tricompartmental osteophyte formation involving the femoral condyles, tibial plateau and patella . Mild joint space narrowing. Fabella is present. IMPRESSION: 1. No acute osseous pathology. 2. Mild tricompartmental osteoarthritic changes.
== END | disposition home or self-care (01) ==
LOC: RADXRMAIN 11:20
PROVIDERS: ATTEND Family Medicine
DX: M17.12 Unilateral primary osteoarthritis, left knee (principal)

== ENCOUNTER → 2024-08-05 | Outpatient (CLI) | payer OTHER ==
--- NOTE | 2024-08-05 15:25 | MM ---
Reason for Exam: Screening (asymptomatic). Last mammogram was performed 1 year(s) and 1 month(s) ago. Patient History: Menarche at age 13. First Full-Term at age 30. Late child-bearing (after 30). Patient has history of breast feeding. Patient used Hormonal Contraceptives for 3 years. 07/11/2019, Benign Core Biopsy on the right side. 07/11/2019, Benign Core Biopsy on the right side. Maternal grandmother (great) had breast cancer under age 50. Maternal grandmother (great) had breast cancer at or over age 50. Risk Values: Yaritza 5 year model risk: 2.7%. NCI Lifetime model risk: 18.3%. Prior Study Comparison: 07/18/2021 Bilateral Screening Mammogram, [facility]. 07/19/2022 Bilateral MG 3D screening mammo w/cad, [facility]. 07/23/2023 Bilateral MG 3D screening mammo w/cad, [facility]. Tissue Density: There are scattered areas of fibroglandular density. Findings: Analyzed By CAD. Scattered regional and diffuse punctate calcifications are unchanged. 2 microclips anterior right breast from prior biopsies. Asymmetric density superior anterior right MLO view is unchanged. There is no suspicious group of microcalcifications or new suspicious mass in either breast. Overall Assessment: Benign, BI-RAD 2 Management: Screening Mammogram of both breasts in 1 year. Patient should continue monthly self-breast exams. A clinical breast exam by your physician is recommended on an annual basis. This exam should not preclude additional follow-up of suspicious palpable abnormalities. Note on Yaritza scores and lifetime risk: 1. A Yaritza score greater than 3% is considered moderate risk. If this is the case, consider specialist referral to assess eligibility for a risk reducing agent. 2. If overall lifetime risk for the development of breast cancer is 20% or higher, the patient may qualify for future screening with alternating mammogram and breast MRI. [facility], , 08/05/2024 3:23 PM. Electronically signed and approved by: Sudha Huynh M.D. Radiologist
== END | disposition home or self-care (01) ==
LOC: RADMAMWWP 11:31
PROVIDERS: ATTEND Family Medicine
DX: Z12.31 Encounter for screening mammogram for malignant neoplasm of breast (principal); R92.323 Mammographic fibroglandular density, bilateral breasts; Z92.0 Personal history of contraception; Z80.3 Family history of malignant neoplasm of breast
CPT/HCPCS: 77063; 77067

== ENCOUNTER 2024-11-06 06:54 | Day surgery (SDC) | payer OTHER ==
[~2024-11-06 06:54] MED LIST changes: -LACTATED RINGERS 1,000 ML IV ONE; -LACTATED RINGERS 1,000 ML IV SCH; +LIDOCAINE 1% (10MG/ML) FOR IV START INTRADERMA PRN; -LIDOCAINE 1% 20 ML VIAL (10MG/ML) FOR IV START INTRADERMA PRN; -LIDOCAINE 1% INJ 10MG/ML (20 ML MDV) ONE; -PROPOFOL 10 MG/ML 20 ML VIAL IV ONE; -fentaNYL (PF) 50 MCG/ML 20 ML VIAL IVP PRN
[2024-11-06] MEDS: IV FLUID CONTINUATION 1,000 ML IV ONE (07:05)
[2024-11-06 07:27] LABS: Glucose,Whole Blood 159 mg/dL (70-110)
[2024-11-06] MEDS: LACTATED RINGERS 1,000 ML IV SCH (07:28)
[2024-11-06] MEDS ORDERED: PROPOFOL 10 MG/ML 20 ML VIAL IV ONE (07:30)
[2024-11-06 07:31] VITALS: TEMP 97.5
--- NOTE | 2024-11-06 07:32 | P.GSHP ---
History of Present Illness H&P Date: 11/06/24 CHIEF COMPLAINT: Colon screen HISTORY OF PRESENT ILLNESS: The patient is a 44-year-old female who presents for colon screen. Lower endoscopy was offered for further evaluation and management. PAST MEDICAL HISTORY: Please see list. PAST SURGICAL HISTORY: Please see list. MEDICATIONS: Please see list. ALLERGIES: Please see list. SOCIAL HISTORY: No illicit drug use FAMILY HISTORY: No reports of Crohn disease or ulcerative colitis. REVIEW OF ORGAN SYSTEMS: CONSTITUTIONAL: No reports of fevers or chills. PHYSICAL EXAM: VITAL SIGNS: Stable GENERAL: Well-developed pleasant in no acute distress. HEENT: No scleral icterus. Extraocular movements grossly intact. Moist buccal mucosa. NECK: Supple without lymphadenopathy. CHEST: Unlabored respirations. Equal bilateral excursions. CARDIOVASCULAR: Regular rate and rhythm. Distal 2+ pulses. ABDOMEN: Soft, nontender, nondistended. MUSCULOSKELETAL: No clubbing, cyanosis, or edema. ASSESSMENT: 1. Colon screen. PLAN: 1. Recommend proceeding with a lower endoscopy Past Medical History Past Medical History: Diabetes Mellitus, GERD/Reflux, Liver Disease, Sleep Apnea/CPAP/BIPAP Additional Past Medical History / Comment(s): CPAP MACHINE, hx fatty liver, resolved, hx acid reflux resolved, varicose veins. past hx. colon polyps, will be having hyst. in near future History of Any Multi-Drug Resistant Organisms: None Reported Past Surgical History: Section, Cholecystectomy, Hernia Repair Additional Past Surgical History / Comment(s): Ceserean Section X2, BARTHOLIN CYST X2, EGD'S, COLONOSCOPY, HEMORRHOID SURGERY, hernia repair X3. ganglion cyst removed x2 from left wrist Past Anesthesia/Blood Transfusion Reactions: Previous Problems w/ Anesthesia, Family History of Problems w/ Anesthesia Additional Past Anesthesia/Blood Transfusion Reaction / Comment(s): VERSED CAUSED CONFUSION AND BECAME COMBATIVE. Woke up during colonoscopy. Uncontrollable crying after waking up. PTS FATHER DID NOT WAKE UP FOR 3 DAYS (CHILDHOOD APPENDECTOMY SURGERY) Smoking Status: Former smoker - Past Family History Mother Family Medical History: Cancer, Deep Vein Thrombosis (DVT) Additional Family Medical History / Comment(s): Ovarian cancer Medications and Allergies Home Medications Medication Instructions Recorded Confirmed Type glyBURIDE [Diabeta] 10 mg PO AC-BID 03/16/17 11/06/24 History Ergocalciferol [Vitamin D2 (1250 1,250 mcg PO WEEKLY 11/05/24 11/06/24 History Mcg = 28244 Iu)] Fluticasone Nasal [place] [Flonase 2 spray EA NOSTRIL DAILY PRN 11/05/24 11/06/24 History Nasal [place]] Semaglutide [Ozempic] 2 mg SQ SHAIKH 11/05/24 11/06/24 History Allergies Allergy/AdvReac Type Severity Reaction Status Date / Time hydromorphone [From Dilaudid] Allergy Severe Anaphylaxis Verified 11/06/24 07:10 midazolam [From Versed] AdvReac Severe CONFUSED, Verified 11/06/24 07:10 COMBATIVE. Surgical - Exam Vital Signs Temp Pulse Resp BP Pulse Ox 97.5 F L 76 16 128/86 99 11/06/24 07:05 11/06/24 07:05 11/06/24 07:05 11/06/24 07:05 11/06/24 07:05 Results - Labs Abnormal Lab Results - Last 24 Hours (Table) 11/06/24 Range/Units 07:26 POC Glucose (mg/dL) 159 H (70-110) mg/dL
--- NOTE | 2024-11-06 07:48 | P.PCN ---
Date of Procedure: 11/06/24 Description of Procedure: PREOPERATIVE DIAGNOSIS: Family history colon cancer Colonoscopy screening. POSTOPERATIVE DIAGNOSIS: Diverticulosis, scattered. Internal/external hemorrhoids, grade 3 OPERATION: Colonoscopy to the cecum, ileocecal valve and appendiceal orifice. SURGEON: Lisy Mitchell MD. ANESTHESIA: MAC. INDICATIONS: The patient is a 44-year-old female who presents for colonoscopy screening, her first. Benefits and risks were described and informed consent was obtained. DESCRIPTION OF PROCEDURE: The patient had undergone Suprep. The patient had been brought into the operating room and laid in the left lateral decubitus position. After adequate intravenous sedation, the rectum was examined with 2% lidocaine jelly. External hemorrhoids were encountered. The rectal tone was within normal limits. No lesions were palpated in the rectal vault. An Olympus colonoscope was advanced u ntil the cecum, ileocecal valve and appendiceal orifice were viewed. The prep was fair. Scattered diverticulosis was encountered. No colonic polyps were found. No evidence of focal colitis was found. Retroflexion of the scope demonstrated grade 3 internal hemorrhoids without active bleeding or inflammation. The colon was desufflated. The patient had tolerated the procedure well. Withdrawal time was over 6 minutes. FINDINGS: Aronchick preparation quality scale 3 (1-5) with limited entire review of the mucosa due to mild to moderate liquid stool Internal hemorrhoids, grade 3 External prolapsed hemorrhoids. No arteriovenous malformations. No adenomatous polyps. No focal colitis. Scattered diverticulosis RECOMMENDATIONS: Lower endoscopy in 3 years, 2027 with 2-day prep Plan - Discharge Summary Discharge Rx Participant: No New Discharge Prescriptions: Continue glyBURIDE [Diabeta] 10 mg PO AC-BID Semaglutide [Ozempic] 2 mg SQ SHAIKH Fluticasone Nasal [place] [Flonase Nasal [place]] 2 spray EA NOSTRIL DAILY PRN PRN Reason: allergies Ergocalciferol [Vitamin D2 (1250 Mcg = 91077 Iu)] 1,250 mcg PO WEEKLY Discharge Medication List glyBURIDE [Diabeta] 10 mg PO AC-BID 03/16/17 [History] Ergocalciferol [Vitamin D2 (1250 Mcg = 03302 Iu)] 1,250 mcg PO WEEKLY 11/05/24 [History] Fluticasone Nasal [place] [Flonase Nasal [place]] 2 spray EA NOSTRIL DAILY PRN 11/05/24 [History] Semaglutide [Ozempic] 2 mg SQ SHAIKH 11/05/24 [History] Follow up Appointment(s)/Referral(s): Lisy Mitchell MD [STAFF PHYSICIAN] - As Needed Patient Instructions/Handouts: Diverticulosis Diet (GEN) Activity/Diet/Wound Care/Special Instructions: Repeat colonoscopy 3 years, 2027. Recommend 2-day prep Discharge Disposition: HOME SELF-CARE
[2024-11-06 08:04] VITALS: BP 104/56; PULSE 80; RESP 18
== END 2024-11-06 09:01 | disposition home or self-care (01) ==
LOC: ORWHC2ENDO 06:54
PROVIDERS: ATTEND Surgery Plastic and Reconstructive Surgery
DX: Z12.11 Encounter for screening for malignant neoplasm of colon (principal); K57.30 Diverticulosis of large intestine without perforation or abscess without bleeding; K64.2 Third degree hemorrhoids; K64.4 Residual hemorrhoidal skin tags; Z86.0100 Personal history of colon polyps, unspecified; Z80.0 Family history of malignant neoplasm of digestive organs; E11.9 Type 2 diabetes mellitus without complications; G47.33 Obstructive sleep apnea (adult) (pediatric); Z90.49 Acquired absence of other specified parts of digestive tract; Z87.891 Personal history of nicotine dependence; Z79.899 Other long term (current) drug therapy; Z79.85 Long-term (current) use of injectable non-insulin antidiabetic drugs; Z79.84 Long term (current) use of oral hypoglycemic drugs; Z98.890 Other specified postprocedural states; Z88.5 Allergy status to narcotic agent
CPT/HCPCS: 81025; 45378; J2704

== ENCOUNTER → 2024-11-28 | Outpatient (CLI) | payer OTHER ==
[2024-11-28 15:21] LABS: Anion Gap 11.00 mmol/L (4.00-12.00); Blood Urea Nitrogen 12.1 mg/dL (9.0-27.0); Carbon Dioxide 29.0 mmol/L (21.6-31.8); Chloride 101 mmol/L (96-109); Glucose 189 mg/dL (70-110); Potassium 4.1 mmol/L (3.5-5.5); Sodium 141 mmol/L (135-145)
[2024-11-28 15:30] LABS: Basophils # (A) 0.04 X 10*3/uL (0.00-0.10); Basophils % (A) 0.5 %; Eosinophils # (A) 0.14 X 10*3/uL (0.04-0.35); Eosinophils % (A) 1.9 %; HCT 43.3 % (37.2-46.3); HGB 15.1 g/dL (12.0-15.0); Immature Grans, Automated 0.30 %; Lymphocytes # (A) 2.43 X 10*3/uL (0.90-5.00); Lymphocytes % (A) 33.4 %; MCH 32.5 pg (27.0-32.0); MCHC 34.9 g/dL (32.0-37.0); MCV 93.3 FL (80.0-97.0); Monocytes # (A) 0.43 X 10*3/uL (0.20-1.00); Monocytes % (A) 5.9 %; NRBC Per 100 WBC 0 X 10*3/uL (0.00-0.01); Neutrophils # (A) 4.22 X 10*3/uL (1.80-7.70); Neutrophils % (A) 58.0 %; Platelet Count 232 X 10*3/uL (140-440); RBC 4.64 X 10*6/uL (4.10-5.20); RDW 12.4 % (11.5-14.5); WBC 7.28 X 10*3/uL (4.50-10.00)
== END | disposition home or self-care (01) ==
LOC: LABPAT 12:09
PROVIDERS: ATTEND Obstetrics & Gynecology Obstetrics
DX: Z01.812 Encounter for preprocedural laboratory examination (principal)
CPT/HCPCS: 80051; 82565; 82947; 84520; 85025; 86850; 86900; 86901; 87086